=== PATIENT | female | born 1985 | race African-American/Black ===

== ENCOUNTER 2017-05-11 19:43 | Emergency (ER) | payer OTHER ==
[~2017-05-11] VITALS: Ht 157.5 cm; Wt 142.7 kg
[~2017-05-11 19:43] MED LIST: DICL75 PO; HYDR-3533 PO
[2017-05-11 19:44] VITALS: BP 177/115; PULSE 106; RESP 16; TEMP 99; O2SAT 100
[2017-05-11 20:22] VITALS: BP 177/115; PULSE 106; RESP 18; TEMP 99; O2SAT 100
[2017-05-11] MEDS ORDERED: DIFL500T PO (20:22)
--- NOTE | 2017-05-11 20:27 | PD ---
HPI Chief Complaint: Musculoskeletal Complaint Time Seen by Provider: 20:22 Travel History International Travel<30 days: No Contact w/Intl Traveler<30days: No Traveled to known affect area: No History of Present Illness HPI This 31-year-old female is complaining of pain in her left And she says she's been having this pain for several months and seems to be getting worse. She has no history of DVT. She was on control pills but stopped them. She does have a history of hypertension but has not overmedication for some time. PFSH Past Medical History Anemia: Yes Diminished Hearing: No Hypertension: Yes Reproductive: Yes (PAPILOMA VIRUS) Immunizations Current: Yes ?: Unknown LMP: 04/12/17 : 0 Para: 0 Miscarriage: 0 : 0 Social History Alcohol Use: No Tobacco Use: No Substance Use: No Allergies-Medications (Allergen,Severity, Reaction): Coded Allergies: No Known Allergies (Verified , 05/11/17) Reported Meds & Prescriptions Reported Meds & Active Scripts Active Lisinopril 20 Mg Tab 20 Mg PO DAILY Reported Diflunisal 500 Mg Tab 500 Mg PO BID Review of Systems General / Constitutional: No: Fever, Chills Eyes: No: Diploplia, Blurred Vision HENT: No: Headaches, Vertigo Cardiovascular: No: Chest Pain or Discomfort, Palpitations Respiratory: No: Cough, Shortness of Breath Gastrointestinal: No: Nausea, Vomiting Genitourinary: No: Urgency Musculoskeletal: Positive: Myalgias, Pain Skin: No Rash Neurologic: No: Weakness, Dizziness Physical Exam Narrative GENERAL: female in no acute distress SKIN: Focused skin assessment warm/dry. HEAD: Atraumatic. Normocephalic. EYES: Pupils equal and round. No scleral icterus. No injection or drainage. ENT: No nasal bleeding or discharge. Mucous membranes pink and moist. NECK: Trachea midline. No JVD. CARDIOVASCULAR: Regular rate and rhythm. No murmur appreciated. RESPIRATORY: No accessory muscle use. Clear to auscultation. Breath sounds equal bilaterally. GASTROINTESTINAL: Abdomen soft, non-tender, nondistended. Hepatic and splenic margins not palpable. MUSCULOSKELETAL: No obvious deformities. No clubbing. No cyanosis. No edema. There is tenderness of the calf somewhat diffusely. Homans sign is positive. Thigh is slightly tender NEUROLOGICAL: Awake and alert. No obvious cranial nerve deficits. Motor grossly within normal limits. Normal speech. PSYCHIATRIC: Appropriate mood and affect; insight and judgment normal. Data Data Last Documented VS Vital Signs Date Time Temp Pulse Resp B/P (MAP) Pulse Ox O2 Delivery O2 Flow Rate FiO2 05/11/17 20:45 102 18 196/118 (144) 100 Room Air 05/11/17 20:22 99.0 Orders Orders Us Leg Venous Doppler (05/11/17 20:25) Lisinopril (Prinivil) (05/11/17 20:45) MDM Medical Decision Making Medical Screen Exam Complete: Yes Emergency Medical Condition: Yes Medical Record Reviewed: Yes Differential Diagnosis Differential includes muscular strain, DVT Narrative Course Ultrasound is negative for DVT. Patient will be restarted on her hypertensive meds. She is stable for discharge Diagnosis Primary Impression: Musculoskeletal pain Additional Impression: Hypertension Qualified Codes: I10 - Essential (primary) hypertension Scripts Lisinopril (Lisinopril) 20 Mg Tab 20 MG PO DAILY, #30 TAB 0 Refills Prov: Mu Seals MD 05/11/17 Disposition: DISCHARGE HOME Condition: Stable Mu Seals MD May 11, 2017 20:27
[2017-05-11 20:45] VITALS: BP 196/118; PULSE 102; RESP 18; O2SAT 100
[2017-05-11] MEDS ORDERED: LISINOPRIL 20 MG TAB PO ONE (20:45)
[2017-05-11] MEDS ORDERED: LISI-515 PO (20:45)
--- NOTE | 2017-05-11 21:23 | RADRPT ---
EXAM DATE/TIME: 05/11/2017 20:56 [facility] COMPARISON: No previous studies available for comparison. INDICATIONS : Left leg pain. MEDICAL HISTORY : Hypertension. Anemia. SURGICAL HISTORY : None. ENCOUNTER: Initial ACUITY: 3 days PAIN SCORE: 5/10 LOCATION: Left leg. TECHNIQUE: Venous ultrasound of the leg was performed from the inguinal ligament to the proximal calf. Real-rosi e, color Doppler and spectral tracing, compression and augmentation techniques were used. FINDINGS: There is normal compressibility of the deep venous system from the inguinal region to the proximal ca lf. No echogenic clot is seen in the lumen of the common femoral, femoral, popliteal, and posterior tibial veins. There is a normal response of the venous system to proximal and distal augmentation an d respiration. CONCLUSION: No DVT is identified within the left lower extremity. Juan José Blevins MD on May 11, 2017 at 21:21 Board Certified Radiologist. This report was verified electronically.
[2017-05-11 21:53] VITALS: BP 187/101
== END 2017-05-11 22:01 | disposition home or self-care (01) ==
LOC: PHED 19:43
DX: M79.1 Myalgia (principal); I10 Essential (primary) hypertension
CPT/HCPCS: 93971; 99284